=== PATIENT | female | born 1965 | race African-American/Black ===

== ENCOUNTER → 2022-03-24 | Day surgery (SDC) | payer OTHER ==
[2022-03-11 12:46] VITALS: BMI 27.3
== END | disposition home or self-care (01) ==
LOC: FASUSAT 06:02
PROVIDERS: ATTEND Orthopaedic Surgery Sports Medicine
PROC: 0SRC0J9 Replacement of Right Knee Joint with Synthetic Substitute, Cemented, Open Approach (ICD-10-PCS; principal; 2022-03-24)
DX: Z53.8 Procedure and treatment not carried out for other reasons (principal); M17.11 Unilateral primary osteoarthritis, right knee
CPT/HCPCS: C9803-CS; U0003; U0005

== ENCOUNTER 2022-04-07 07:41 | Day surgery (SDC) | payer OTHER ==
[2022-03-27 12:27] VITALS: BMI 27.3
[2022-04-07] MEDS ORDERED: MIDAZOLAM HCL 2 MG/2 ML SINGLE DOSE VIAL ONE ×2 (08:58→11:25)
[2022-04-07] MEDS ORDERED: BUPIVACAINE LIPOSOME/PF (EXPAREL) 266 MG/20 ML VIAL ONE (08:58)
[2022-04-07] MEDS ORDERED: BUPIVACAINE HCL/PF 0.5% (5MG/ML) 10 ML VIAL ONE (08:59)
[2022-04-07] MEDS ORDERED: FENTANYL CITRATE/PF 50 MCG/ML VIAL ONE ×2 (08:59→10:39)
[2022-04-07] MEDS ORDERED: VANCOMYCIN 1,000 MG VIAL (RESTRICTED TO ID ONLY) ONE (09:47)
[2022-04-07] MEDS ORDERED: CEFAZOLIN 2 GM in DEXTROSE 5%-WATER - 50 ML IVPB ONE (10:00)
[2022-04-07] MEDS ORDERED: TRANEXAMIC ACID 1000 MG/10 ML VIAL IVPUSH ONE (10:00)
[2022-04-07] MEDS ORDERED: fentaNYL CITRATE 250 MCG/5 ML VIAL ONE (11:42)
[2022-04-07] MEDS ORDERED: PROPOFOL 20 ML ONE ×3 (11:48→13:07)
[2022-04-07] MEDS ORDERED: TRANEXAMIC ACID 1000 MG/10 ML VIAL ONE (11:55)
[2022-04-07] MEDS ORDERED: ONDANSETRON 4 MG/2 ML VIAL ONE (12:17)
[2022-04-07] MEDS ORDERED: DEXAMETHASONE SOD PHOSPHATE 4 MG/1 ML VIAL ONE (12:17)
[2022-04-07] MEDS ORDERED: BUPIVICAINE 0.25%/MORPH PF/KETOROLAC - 51ML DISP.SYRINGE IA ONE (13:28)
[2022-04-07] MEDS ORDERED: MAG HYDROX/AL HYDROX/SIMETH 30 ML UNIT-DOSE CUP PO PRN (13:53)
[2022-04-07] MEDS ORDERED: ONDANSETRON 4 MG/2 ML VIAL IVPUSH PRN ×2 (13:53→14:48)
[2022-04-07] MEDS ORDERED: LACTATED RINGERS SOLUTION 1,000 ML IV SCH ×2 (14:00→15:00)
[2022-04-07] MEDS ORDERED: oxyCODONE HCL 5 MG TABLET PO PRN ×2 (14:48)
[2022-04-07] MEDS ORDERED: ACETAMINOPHEN 500 MG TABLET (FP) ONE (15:43)
[2022-04-07] MEDS: ACETAMINOPHEN 500 MG TABLET (FP) PO SCH ×3 (15:55→21:33)
[2022-04-07] MEDS ORDERED: DEXTROSE 5%-WATER - 50 ML IVPB ONE (19:49)
[2022-04-07] MEDS ORDERED: ceFAZolin SODIUM 1 GM VIAL ONE (19:49)
[2022-04-07] MEDS: CEFAZOLIN 2 GM in DEXTROSE 5%-WATER - 50 ML IVPB SCH (19:52)
[2022-04-07] MEDS: oxyCODONE HCL 10 MG SUSTAINED ACTING TABLET PO SCH (21:34)
[2022-04-07] MEDS: GABAPENTIN 300 MG CAPSULE PO SCH (21:34)
[2022-04-07] MEDS: SENNOSIDES/DOCUSATE COMBO (SENNA PLUS) TABLET (UD) PO SCH (21:34)
[2022-04-08] MEDS ORDERED: DEXTROSE 5%-WATER - 50 ML IVPB ONE ×2 (03:42→12:55)
[2022-04-08] MEDS ORDERED: ceFAZolin SODIUM 1 GM VIAL ONE ×2 (03:42→12:55)
[2022-04-08] MEDS: CEFAZOLIN 2 GM in DEXTROSE 5%-WATER - 50 ML IVPB SCH ×2 (03:58→12:59)
[2022-04-08 07:39] LABS: HEMATOCRIT 32.6 % (32.4-45.2); HEMOGLOBIN 10.6 G/dL (10.7-15.3); MCH 26.7 pg (25.7-33.7); MCHC 32.5 g/dl (32.0-36.0); MEAN CELL VOLUME 82.3 fl (80-96); MEAN PLT VOLUME 9.5 fl (7.5-11.1); PLATELET COUNT 188.4 10^3/uL (134-434); RBC 3.96 10^6/uL (3.60-5.2); RDW 15.8 % (11.6-15.6); WHITE BLOOD COUNT 7.5 10^3/uL (4.0-10.8)
[2022-04-08 07:49] LABS: CALCIUM 8.8 mg/dl (8.5-10); CREATININE 0.9 mg/dl (0.55-1.3)
[2022-04-08] MEDS: ACETAMINOPHEN 500 MG TABLET (FP) PO SCH ×3 (08:46→15:47)
[2022-04-08] MEDS ORDERED: PANTOPRAZOLE 40 MG TABLET PO SCH (10:00)
[2022-04-08] MEDS ORDERED: ASPIRIN 325 MG TABLET PO SCH (10:00)
[2022-04-08] MEDS ORDERED: MULTIVITAMINS (DAILY MVI) TABLET (FP) PO SCH (10:00)
[2022-04-08] MEDS: SENNOSIDES/DOCUSATE COMBO (SENNA PLUS) TABLET (UD) PO SCH (10:14)
[2022-04-08] MEDS: oxyCODONE HCL 10 MG SUSTAINED ACTING TABLET PO SCH (10:15)
[2022-04-08] MEDS: GABAPENTIN 300 MG CAPSULE PO SCH (10:17)
[2022-04-08 14:13] VITALS: BP 104/58; PULSE 62; TEMP 98
== END 2022-04-08 17:50 | disposition home or self-care (01) ==
LOC: SUATTDRO 07:41 → FASUSAT 07:41 → FM/S 16:41 → FASUSAT 04-08 17:50
PROVIDERS: ATTEND Nurse Practitioner Acute Care
PROC: 8E0YXBZ Computer Assisted Procedure of Lower Extremity (ICD-10-PCS; 2022-04-07)
PROC: 8E0Y0CZ Robotic Assisted Procedure of Lower Extremity, Open Approach (ICD-10-PCS; 2022-04-07)
PROC: 0SRD0J9 Replacement of Left Knee Joint with Synthetic Substitute, Cemented, Open Approach (ICD-10-PCS; principal; 2022-04-07 12:16)
DX: M17.12 Unilateral primary osteoarthritis, left knee (principal)
CPT/HCPCS: 20985; 27447; C1776; S2900; 36415; 73560-TC-RT-FY; 80048; 85027; 88305-TC; 88311-TC; 94760; 97010-GP; 97116-GP; 97161-GP

== ENCOUNTER 2022-06-02 06:03 | Day surgery (SDC) | payer OTHER ==
[2022-05-27 14:42] VITALS: BMI 27.3
[2022-06-02] MEDS ORDERED: ONDANSETRON 4 MG/2 ML VIAL IVPUSH PRN (07:58)
[2022-06-02] MEDS ORDERED: oxyCODONE HCL 5 MG TABLET PO PRN (07:58)
[2022-06-02] MEDS ORDERED: LACTATED RINGERS SOLUTION 1,000 ML IV SCH (08:00)
[2022-06-02] MEDS ORDERED: FENTANYL CITRATE/PF 50 MCG/ML VIAL ONE (08:02)
[2022-06-02] MEDS ORDERED: KETOROLAC TROMETHAMINE 30 MG/1 ML VIAL ONE (08:03)
[2022-06-02] MEDS ORDERED: ACETAMINOPHEN INJECTION 100 ML IVPB ONE (08:04)
[2022-06-02] MEDS ORDERED: ACETAMINOPHEN 1000 MG/100 ML BAG IVPB ONE ×2 (08:09→08:26)
[2022-06-02] MEDS ORDERED: KETOROLAC TROMETHAMINE 30 MG/1 ML VIAL IVPUSH ONE (08:27)
[2022-06-02 09:44] VITALS: TEMP 97.9
[2022-06-02 09:48] VITALS: BP 139/77; PULSE 60
== END 2022-06-02 09:50 | disposition home or self-care (01) ==
LOC: FASU 06:03
PROVIDERS: ATTEND Orthopaedic Surgery Sports Medicine
PROC: 0SNCXZZ Release Right Knee Joint, External Approach (ICD-10-PCS; principal; 2022-06-02 07:40)
DX: M24.661 Ankylosis, right knee (principal)
CPT/HCPCS: 94760

== ENCOUNTER 2022-09-01 06:07 | Inpatient (IN) | payer OTHER ==
[2022-08-25 12:59] VITALS: BMI 28.8
[2022-09-01] MEDS ORDERED: TRANEXAMIC ACID 1000 MG/10 ML VIAL IVPUSH ONE (06:47)
[2022-09-01] MEDS ORDERED: CEFAZOLIN 2 GM in DEXTROSE 5%-WATER - 50 ML IVPB ONE (07:15)
[2022-09-01] MEDS ORDERED: FENTANYL CITRATE/PF 50 MCG/ML VIAL ONE (07:36)
[2022-09-01] MEDS ORDERED: BUPIVACAINE LIPOSOME/PF (EXPAREL) 266 MG/20 ML VIAL ONE (07:36)
[2022-09-01] MEDS ORDERED: MIDAZOLAM HCL 2 MG/2 ML SINGLE DOSE VIAL ONE (07:36)
[2022-09-01] MEDS ORDERED: BUPIVACAINE HCL/PF 2.5 MG/ML - 30 ML VIAL IJ ONE (07:37)
[2022-09-01] MEDS ORDERED: SUCCINYLCHOLINE CHLORIDE 200 MG/10 ML SYRINGE ONE (08:00)
[2022-09-01] MEDS ORDERED: VANCOMYCIN 1,000 MG VIAL (RESTRICTED TO ID ONLY) ONE ×2 (08:00→09:42)
[2022-09-01] MEDS ORDERED: PROPOFOL 40 ML ONE (08:01)
[2022-09-01] MEDS ORDERED: ePHEDrine SULFATE 50 MG/1 ML AMPULE ONE (08:07)
[2022-09-01] MEDS ORDERED: oxyCODONE HCL 5 MG TABLET PO PRN (08:28)
[2022-09-01] MEDS ORDERED: ONDANSETRON 4 MG/2 ML VIAL IVPUSH PRN ×2 (08:28→11:50)
[2022-09-01] MEDS ORDERED: LACTATED RINGERS SOLUTION 1,000 ML IV SCH ×2 (08:30→12:00)
[2022-09-01] MEDS ORDERED: BUPIVICAINE 0.25%/MORPH PF/KETOROLAC - 51ML DISP.SYRINGE IA ONE ×2 (10:14→11:06)
[2022-09-01] MEDS ORDERED: PROPOFOL 20 ML ONE ×2 (10:31→11:23)
[2022-09-01] MEDS ORDERED: VANCOMYCIN 1,000 MG VIAL (RESTRICTED TO ID ONLY) IVPB ONE (10:48)
[2022-09-01] MEDS ORDERED: MAGNESIUM HYDROX 2400MG/30ML ORAL SUSPENSION 30 ML CUP PO PRN (11:50)
[2022-09-01] MEDS ORDERED: MAG HYDROX/AL HYDROX/SIMETH 30 ML UNIT-DOSE CUP PO PRN (11:50)
[2022-09-01] MEDS ORDERED: ACETAMINOPHEN INJECTION 100 ML IVPB ONE (11:52)
[2022-09-01] MEDS: ACETAMINOPHEN 1000 MG/100 ML BAG IVPB ONE ×2 (12:00→15:47)
[2022-09-01] MEDS: oxyCODONE HCL 5 MG TABLET PO PRN ×2 (14:57→20:30)
[2022-09-01] MEDS: CEFAZOLIN SODIUM 2 GM in DEXTROSE 5%-WATER 100 ML IVPB SCH (16:04)
[2022-09-01] MEDS: ACETAMINOPHEN 500 MG TABLET (FP) PO SCH ×2 (18:31→23:22)
[2022-09-01] MEDS: GABAPENTIN 300 MG CAPSULE PO SCH (22:17)
[2022-09-01] MEDS: SENNOSIDES/DOCUSATE COMBO (SENNA PLUS) TABLET (UD) PO SCH (22:17)
[2022-09-02] MEDS: oxyCODONE HCL 5 MG TABLET PO PRN ×3 (00:30→14:11)
[2022-09-02] MEDS: CEFAZOLIN SODIUM 2 GM in DEXTROSE 5%-WATER 100 ML IVPB SCH ×2 (01:38→08:23)
[2022-09-02] MEDS: ACETAMINOPHEN 500 MG TABLET (FP) PO SCH ×2 (06:15→14:12)
[2022-09-02 08:12] LABS: HEMATOCRIT 33.7 % (32.4-45.2); HEMOGLOBIN 11.3 G/dL (10.7-15.3); MCH 27.1 pg (25.7-33.7); MCHC 33.6 g/dl (32.0-36.0); MEAN CELL VOLUME 80.8 fl (80-96); MEAN PLT VOLUME 9.4 fl (7.5-11.1); PLATELET COUNT 220.4 10^3/uL (134-434); RBC 4.17 10^6/uL (3.60-5.2); RDW 16.3 % (11.6-15.6); WHITE BLOOD COUNT 7.8 10^3/uL (4.0-10.8)
[2022-09-02 08:23] LABS: CALCIUM 8.5 mg/dl (8.5-10); CREATININE 0.8 mg/dl (0.55-1.3)
[2022-09-02] MEDS: SENNOSIDES/DOCUSATE COMBO (SENNA PLUS) TABLET (UD) PO SCH (10:00)
[2022-09-02] MEDS ORDERED: ASPIRIN 325 MG TABLET PO SCH (10:00)
[2022-09-02] MEDS ORDERED: PANTOPRAZOLE 40 MG TABLET PO SCH (10:00)
[2022-09-02 13:57] VITALS: BP 151/76; PULSE 71; RESP 16; TEMP 98.4
[2022-09-02] MEDS: GABAPENTIN 300 MG CAPSULE PO SCH (14:16)
== END 2022-09-02 14:53 | disposition home or self-care (01) | DRG 302 ==
LOC: SUATTDRO 06:07 → FASUSAT 06:07 → FM/S 06:47 → EDSTATUS 14:00
PROC: 8E0Y0CZ Robotic Assisted Procedure of Lower Extremity, Open Approach (ICD-10-PCS; 2022-09-01)
PROC: 0SRD0JZ Replacement of Left Knee Joint with Synthetic Substitute, Open Approach (ICD-10-PCS; principal; 2022-09-01 09:31)
DX: M17.12 Unilateral primary osteoarthritis, left knee (principal); I10 Essential (primary) hypertension; E78.5 Hyperlipidemia, unspecified
CPT/HCPCS: 36415; 73560-TC-LT-FY; 80048; 85027; 88305-TC; 88311-TC; 94760; 97010-GP; 97116-GP; 97162-GP; C1776